=== PATIENT | female | born 1955 | race Two or more races ===

== ENCOUNTER 2020-12-16 05:29 | Inpatient (IN) | payer MEDICARE, OTHER ==
[2020-12-16] VITALS (16 sets, daily range): BP systolic 130–163; BP diastolic 64–83
[~2020-12-16] VITALS: Ht 157.5 cm; Wt 81.2 kg
[2020-12-16] MEDS ORDERED: FLUTICASONE PRO16 G1 NASAL (06:40)
[2020-12-16] MEDS ORDERED: NITRO0.4 SL (06:40)
[2020-12-16] MEDS ORDERED: BENICAR40 MG ORAL (06:40)
[2020-12-16] MEDS ORDERED: RANEXA500 MG ORAL (06:40)
[2020-12-16] MEDS ORDERED: ASPIRIN81 MG ORAL (06:40)
[2020-12-16] MEDS ORDERED: CRESTOR20 MG ORAL (06:40)
[2020-12-16] MEDS ORDERED: PANTOPRAZOLE SO40 MG ORAL (06:40)
[2020-12-16] MEDS ORDERED: DICLOFEN 3%-HYA30 GM TP (06:40)
[2020-12-16] MEDS ORDERED: METOPROLOL TART25 MG ORAL (06:40)
[2020-12-16] MEDS ORDERED: AMLODIPINE BESY10 MG ORAL (06:40)
[2020-12-16] MEDS ORDERED: IBUPROFEN600 M1 ORAL (06:40)
[2020-12-16] MEDS ORDERED: TRAMADOL HCL50 MG ORAL (06:40)
[2020-12-16] MEDS ORDERED: ceFAZolin sod 1 GM in NS 55 ML IVPB ONE (07:00)
[2020-12-16] MEDS ORDERED: Acetaminophen (Non formulary) 100 ML IV ONE (07:15)
[2020-12-16] MEDS ORDERED: oxyCODONE HCL/Acetaminophen 5/325mg ORAL PRN (07:15)
[2020-12-16] MEDS ORDERED: LR 1000ml 1,000 ML IVLG SCH (07:15)
[2020-12-16] MEDS ORDERED: fentaNYL 100 mcg/2 mL IV PRN (07:15)
[2020-12-16] MEDS ORDERED: Ketorolac 30mg Inj IV PRN ×2 (07:15)
[2020-12-16] MEDS ORDERED: Hydromorphone 0.5mg/0.5ml inj IVP PRN (07:15)
[2020-12-16] MEDS ORDERED: Atropine Sulfate 0.4mg/ml inj IVP PRN (07:15)
[2020-12-16] MEDS ORDERED: DiphenhydrAMINE 50mg/ml Inj IVP PRN (07:15)
[2020-12-16] MEDS ORDERED: Metoclopramide 10mg/2ml Inj IVP PRN (07:15)
[2020-12-16] MEDS ORDERED: LORazepam Inj 2mg/ml 1ml IV PRN (07:15)
[2020-12-16] MEDS ORDERED: Midazolam 2mg/2ml Inj IVP PRN (07:15)
[2020-12-16] MEDS ORDERED: Labetalol 5mg/ml 20ml vial IV PRN (07:15)
[2020-12-16] MEDS ORDERED: HYDROcodone/Acetamin 5/325 tab ORAL PRN (07:15)
[2020-12-16] MEDS ORDERED: Meperidine 25mg/1ml Inj (FOR RIGORS ONLY) IV PRN (07:15)
[2020-12-16] MEDS ORDERED: HYDROcodone/Acetamin 7.5/325 tab ORAL PRN (07:15)
[2020-12-16] MEDS ORDERED: Sodium Chloride 10ml vial INJ ONE (07:16)
[2020-12-16] MEDS ORDERED: Lidocaine 1% MPF 10mg/ml 5ml ONE (07:16)
--- NOTE | 2020-12-16 07:19 | Anethesia Preoperative Eval ---
Anesthesia Pre-op PMH/ROS General Date of Evaluation: Dec 16, 2020 Time of Evaluation: 07:19 Anesthesiologist: Walker ASA Score: ASA 3 Mallampati Score Class I : Soft palate, uvula, fauces, pillars visible Class II: Soft palate, uvula, fauces visible Class III: Soft palate, base of uvula visible Class IV: Only hard plate visible Mallampati Classification: Class II Surgeon: Vanita Diagnosis: Abd Pain Surgical Procedure: L Nephrectomy Anesthesia History: none Family History: no anesthesia problems Allergies: Coded Allergies: No Known Allergies (Unverified , 12/16/20) Medications: see eMAR Patient NPO?: Yes Past Medical History Cardiovascular: Reports: HTN, other - HL Gastrointestinal/Genitourinary: Reports: GERD Hematology/Immune: Reports: other - L Breast CA Other: obesity - BMI 34 PSxH Narrative: L Mastectomy Anesthesia Pre-op Phys. Exam Physician Exam Last Vital Signs Date Time Temp Pulse Resp B/P (MAP) Pulse Ox O2 Delivery O2 Flow Rate FiO2 12/16/20 06:01 Room Air 12/16/20 05:59 97.0 78 18 161/71 (101) 97 Constitutional: NAD Neurologic: CN 2-12 intact Cardiovascular: RRR Respiratory: CTA Gastrointestinal: S/NT/ND Airway Exam Mallampati Score: Class II MO: full ROM: full Teeth: missing, intact Anesthesia Pre-op A/P Risk Assessment & Plan Assessment: ASA 3 Plan: GA, SED, GlideScope Status Change Before Surgery: No Pre-Antibiotics Dru Gram Ancef IV Given Within 1 Hr of Incision: Yes Time Given: 07:56 Edis Cardoso MD Dec 16, 2020 07:19
[2020-12-16] MEDS ORDERED: Bupivacaine 0.5% Inj 30 ml vial INJ ONE (07:25)
[2020-12-16] MEDS ORDERED: Gelatin Sponge,Absorbable Syr TP ONE (07:25)
[2020-12-16] MEDS ORDERED: Thrombin 5000 units TOPIC ONE (07:26)
[2020-12-16] MEDS ORDERED: fentaNYL 100 mcg/2 mL IV ONE (07:34)
--- NOTE | 2020-12-16 07:59 | Pre-Procedure Note/Attestation ---
Pre-Procedure Note/Attestation Complete Prior to Procedure Planned Procedure: left Procedure Narrative: Laparoscopic partial nephrectomy Indications for Procedure Pre-Operative Diagnosis: left renal mass Attestation I attest that I discussed the nature of the procedure; its benefits; risks and complications; and alternatives (and the risks and benefits of such alternatives), prior to the procedure, with the patient (or the patient's legal insurance verification representative). I attest that, if there was a reasonable possibility of needing a blood transfusion, the patient (or the patient's legal insurance verification representative) was given the [facility] standardized written summary, pursuant to the Manjinder Torrey Blood Safety Act ([place] Health and Safety Code # 1645, as amended). I attest that I re-evaluated the patient just prior to the surgery and that there has been no change in the patient's H&P, except as documented below: Nam Waldron MD Dec 16, 2020 07:59
[2020-12-16] MEDS ORDERED: Ketorolac 30mg Inj ONE (08:39)
--- NOTE | 2020-12-16 08:45 | Brief Operative Note ---
Immediate Post Operative Note Operative Note Pre-op Diagnosis: left renal mass Procedure: Left laparoscopic partial nephrectomy Post-op Diagnosis: same Post-op Diagnosis: same as pre-op Surgeon: Jorge Waldron Anesthesia: general Specimen: yes Complications: none Condition: stable Fluids: 500 Estimated Blood Loss: minimal Implant(s) used?: No Nam Waldron MD Dec 16, 2020 08:45
--- NOTE | 2020-12-16 08:46 | Immediate Post-Op Evaluation ---
Immediate Post-Op Evalulation Immediate Post-Op Evalulation Procedure: L Renal Cyst Removal Date of Evaluation: Dec 16, 2020 Time of Evaluation: 09:13 IV Fluids: 500 LR Blood Products: 0 Estimated Blood Loss: 10 Urinary Output: 0 Blood Pressure Systolic: 171 Blood Pressure Diastolic: 92 Pulse Rate: 79 Respiratory Rate: 16 O2 Sat by Pulse Oximetry: 97 Temperature (Fahrenheit): 98.8 Pain Score (1-10): 2 Nausea: No Vomiting: No Complications 0 Patient Status: awake, reacts, patent, extubated, none Hydration Status: adequate Dru Gram Ancef IV Given Within 1 Hr of Incision: Yes Time Given: 07:56 Edis Cardoso MD Dec 16, 2020 08:46
[2020-12-16] MEDS ORDERED: Ketorolac 30mg Inj IM PRN (09:00)
[2020-12-16 09:34] LABS: BASOPHILS % (AUTO) 0.8 % (0.0-2.0); HEMATOCRIT 39.6 % (37.0-47.0); HEMOGLOBIN 12.9 G/DL (12.0-16.0); LYMPHOCYTES % (AUTO) 34.6 % (20.0-45.0); MEAN CORPUSCULAR VOLUME 89 FL (80-99); MONOCYTES % (AUTO) 4.2 % (1.0-10.0); NEUTROPHILS % (AUTO) 59.4 % (45.0-75.0); PLATELET COUNT 225 K/UL (150-450); RED BLOOD COUNT 4.43 M/UL (4.20-5.40); RED CELL DISTRIBUTION WIDTH 12.6 % (11.6-14.8); WHITE BLOOD COUNT 7.1 K/UL (4.8-10.8)
[2020-12-16 09:41] LABS: ANION GAP 9 mmol/L (5-15); BLOOD UREA NITROGEN 17 mg/dL (7-18); CALCIUM 8.8 MG/DL (8.5-10.1); CARBON DIOXIDE 27 MMOL/L (21-32); CHLORIDE 108 MMOL/L (98-107); CREATININE 0.9 MG/DL (0.55-1.30); POTASSIUM 3.5 MMOL/L (3.5-5.1); SODIUM 144 MMOL/L (136-145)
--- NOTE | 2020-12-16 10:00 | NUR ---
NURSE NOTES: Pt received from Yudy Barton neurosurgical nurse. pt awake and responsive. Bed low and locked, aguilar light placed within reach. no complaint of pain. initial vitals as follows: 130/68, 98.2 Oral, 94 on 2 liters NC, 18 respiration, 84 HR.
[2020-12-16] MEDS: D5 1/2NS w/KCl 20mEq 1,000 ML IV SCH ×2 (12:22→21:20)
--- NOTE | 2020-12-16 13:24 | NUR ---
NURSE NOTES: PLease note delay on med recon due to no assignment of pcp. Notified Dr. Waldron upon arrival however still no response.
--- NOTE | 2020-12-16 13:29 | Operative Note - Dictated ---
DATE OF OPERATION: 12/16/2020 PREOPERATIVE DIAGNOSIS: Left renal cyst/mass. POSTOPERATIVE DIAGNOSIS: Left renal cyst/mass. OPERATION: Laparoscopic partial nephrectomy on the left. BOAT GARNISHER: Nam Waldron MD. ANESTHESIA: General. FINDINGS: Septated mass in the left kidney. INDICATIONS FOR SURGERY: The patient had abdominal pain and underwent CT urogram that showed a large cystic lesion in the left kidney, most likely simple cyst. However, there was a septa with a questionable 2 versus 3. Treatment options were explained in great length including all potential complications to the patient. She signed a consent. DESCRIPTION OF PROCEDURE: She was brought to the operating room, placed in left lateral decubital position, prepped and draped in a standard fashion. A Veress needle was placed. Pneumoperitoneum was created to 15 mmHg. A 12 mm trocar was placed and additional 5 and 12 mm trocar was placed in the standard position. Cyst was clearly seen protruding from the mesentery of the descending colon. Using sharp blunt dissection electrocautery, colon was retracted medially exposing cystic mass of the left kidney. Using hot scissors as well as the hook, cyst was dissected free all the way to the margin of the left kidney and excised in whole entirety and sent for pathologic examination. Inside the cyst was clear fluid approximately 300 mL. There was no evidence of bleeding or . Sponge count, instrument count was correct. All the trocars were removed. Pneumoperitoneum deflated. Wounds were closed with 0 Vicryl [id number] suture and esequiel for the skin. Nam Waldron M.D. DR: YANETH JOB#: [id number] CC:
[2020-12-16] MEDS ORDERED: Flonase Nasal Inhaler 16gm NASAL SCH (15:30)
[2020-12-16] MEDS ORDERED: Ranolazine 500mg tab ORAL SCH (15:30)
[2020-12-16] MEDS ORDERED: traMADol 50mg tab ORAL PRN (15:30)
[2020-12-16] MEDS ORDERED: Nitroglycerin Subl 0.4mg tab SL PRN (15:30)
[2020-12-16] MEDS: ceFAZolin 2gm/50ml Premix 50 ML IV SCH (16:15)
--- NOTE | 2020-12-16 19:45 | NUR ---
NURSE HAND-OFF: Important Events on Shift:[no remarkabe evets] Patient Status: [full] Diet: [clear liquid] Pending Orders: [] Pending Results/Labs:[] Pending MD notification:[] Latest Vital Signs: Temperature 98.2 , Pulse 91 , B/P 143 /70 , Respiratory Rate 20 , O2 SAT 94 , Nasal Cannula, O2 Flow Rate 3 . Vital Sign Comment: [] Latest Duran Fall Score: 30 Fall Risk: Medium Risk Safety Measures: Call light , Bed Alarm , Side Rails Side Rails x1, Bed position . Fall Precautions: Report given to [Natasha MARTINEZ].
--- NOTE | 2020-12-16 19:46 | NUR ---
NURSE NOTES: Received patient in no apparent distress. A&OX4. IV site patent and intact. Surgical dressing noted on abdomen, dry and intact. Provide IS instruction, patient fully understood. Bed in lowest position. Call light within reach. Will continue to monitor.
--- NOTE | 2020-12-16 19:53 | NUR ---
NURSE NOTES: Obtained SCD for DVT prophylaxis order from Dr. Vega.
--- NOTE | 2020-12-16 20:40 | NUR ---
NURSE NOTES: Clarified with Dr. Vega regarding patient's one of home medication which is Flonase and Ranexa. Obtained continue Flonase as needed and Ranexa 500mg po BID scheduled order.
[2020-12-17] VITALS: BP 116/60
[2020-12-17] MEDS: ceFAZolin 2gm/50ml Premix 50 ML IV SCH (00:02)
[2020-12-17 04:00] VITALS: BP 135/63
[2020-12-17 05:56] LABS: BASOPHILS % (AUTO) 0.9 % (0.0-2.0); EOSINOPHILS % (AUTO) 0.1 % (0.0-3.0); HEMATOCRIT 38.3 % (37.0-47.0); HEMOGLOBIN 12.5 G/DL (12.0-16.0); MEAN CORPUSCULAR VOLUME 90 FL (80-99); MONOCYTES % (AUTO) 4.6 % (1.0-10.0); NEUTROPHILS % (AUTO) 69.5 % (45.0-75.0); PLATELET COUNT 232 K/UL (150-450); RED BLOOD COUNT 4.25 M/UL (4.20-5.40); RED CELL DISTRIBUTION WIDTH 12.5 % (11.6-14.8)
[2020-12-17 06:08] LABS: ANION GAP 13 mmol/L (5-15); BLOOD UREA NITROGEN 10 mg/dL (7-18); CALCIUM 9.1 MG/DL (8.5-10.1); CARBON DIOXIDE 23 MMOL/L (21-32); CHLORIDE 108 MMOL/L (98-107); CREATININE 0.9 MG/DL (0.55-1.30); POTASSIUM 4.4 MMOL/L (3.5-5.1); SODIUM 143 MMOL/L (136-145)
--- NOTE | 2020-12-17 07:39 | NUR ---
NURSE HAND-OFF: Important Events on Shift: Patient Status: Diet: clear liquid Pending Orders: Pending Results/Labs: Pending MD notification: Latest Vital Signs: Temperature 98.2 , Pulse 73 , B/P 135 /63 , Respiratory Rate 20 , O2 SAT 96 , Nasal Cannula, O2 Flow Rate 2.0 . Vital Sign Comment: Latest Duran Fall Score: 30 Fall Risk: Medium Risk Safety Measures: Call light Within Reach, Bed Alarm Zone 1, Side Rails Side Rails x2, Bed position Low and Locked. Fall Precautions: Patient Fall Education Report given to Yudy MARTINEZ.
--- NOTE | 2020-12-17 07:40 | NUR ---
NURSE NOTES Received patient comfortably resting on bed, asleep, but easily arousable, no sign of distress, IVF patent and infusing well, lap sites dry no active bleeding noted,on fall precaution plan of care ws discussed verbalized understanding 4 P's in progress MICHELLE SALINAS
[2020-12-17 08:00] VITALS: BP 129/69
[2020-12-17] MEDS: D5 1/2NS w/KCl 20mEq 1,000 ML IV SCH (08:10)
--- NOTE | 2020-12-17 08:50 | NUR ---
PT EVALUATION/DISCHARGE NOTE Patient seen for initial evaluation. Skilled inpatient PT intervention is not warranted as patient is at independent/supervised level with all functional mobility without an assistive device. Patient discharged from PT, safe to function with nursing supervision. No DME needs identified. Manuela RN notified of patient's status. Addendum: 12/17/20 at 1204 by ROMELIA COURTNEY PT Amended: Links added.
[2020-12-17] MEDS ORDERED: Ranolazine 500mg tab ORAL SCH (09:00)
--- NOTE | 2020-12-17 09:29 | NUR ---
nurse notes harden cath dcd as ordered seen by PT deyanira vieyra RN
[2020-12-17 11:46] VITALS: BP 127/67
--- NOTE | 2020-12-17 12:26 | 48 Hour Post Anesthesia Eval ---
Post Anesthesia Evaluation Procedure: L Renal Cyst Removal Date of Evaluation: Dec 17, 2020 Time of Evaluation: 12:25 Blood Pressure Systolic: 134 0: 72 Pulse Rate: 68 Respiratory Rate: 20 Temperature (Fahrenheit): 97.6 O2 Sat by Pulse Oximetry: 98 Airway: patent Nausea: No Vomiting: No Pain Intensity: 2 Hydration Status: adequate Cardiopulmonary Status: stable Mental Status/LOC: patient returned to baseline Follow-up Care/Observations: n/a Post-Anesthesia Complications: none Follow-up care needed: ready to discharge Arturo Ridley MD Dec 17, 2020 12:26
--- NOTE | 2020-12-17 12:42 | Consultation ---
History of Present Illness General Date patient seen: Dec 17, 2020 Present Illness HPI 65-year-old female status post Laparoscopic partial nephrectomy on the left who was admitted post op for monitoring. surgery called to evaluate and assist with care. patient seen, chart reviewed, patient examined. no n/v/f/c. states feels very well. pain controlled. diet initiated. no signs of bleeding. abd exam benign. meds reviewed, chart reviewed, patient monitored in post op period safely Allergies: Coded Allergies: No Known Allergies (Unverified , 12/16/20) COVID-19 Screening Contact w/high risk pt: No Experienced COVID-19 symptoms?: No Medication History Scheduled Amlodipine Besylate* (Amlodipine Besylate*), 10 MG ORAL DAILY, (Reported) Aspirin* (Aspirin*), 81 MG ORAL DAILY, (Reported) Diclofenac/Hyaluronate/Niacin (Diclofen 3%-Hyaluron 2%-Niac4%), 30 GM TP NEEDED, (Reported) Fluticasone Propionate* (Fluticasone Propionate*), 1 SPRAY NASAL NEEDED, ( Reported) Metoprolol Tartrate* (Metoprolol Tartrate*), 25 MG ORAL EVERY 12 HOURS, (Reported) Olmesartan Medoxomil (Benicar), 40 MG ORAL DAILY, (Reported) Pantoprazole* (Pantoprazole*), 40 MG ORAL DAILY, (Reported) Ranolazine* (Ranexa*), 500 MG ORAL BID, (Reported) Rosuvastatin Calcium* (Crestor*), 20 MG ORAL DAILY, (Reported) Scheduled PRN Ibuprofen* (Motrin*), 800 MG ORAL Q6H PRN for FOR PAIN, (Reported) Nitroglycerin 0.4MG table* (Nitroglycerin*), 0.4 MG SL .Q5MIN X 3 DOSES PRN for CHEST PAIN, (Reported) Tramadol Hcl* (Ultram*), 50 MG ORAL Q6H PRN for For Pain, (Reported) Patient History History Provided By: Patient, Medical Record, PMD Healthcare decision maker N Resuscitation status Advanced Directive on File Past Medical/Surgical History Past Medical/Surgical History: (1) Renal mass Review of Systems Review of Symptoms General ROS: no weight loss or fever Psychological ROS: no depression or mood changes, no memory loss Ophthalmic ROS: no visual changes or eye irritation ENT ROS: no nasal congestion, hearing loss, dizziness Allergy and Immunology ROS: no allergic symptoms or urticaria Hematological and Lymphatic ROS: no swollen glands, unusual bleeding or bruising Endocrine ROS: no polyuria, polydipsia, weight changes, temperature intolerance Respiratory ROS: no cough, shortness of breath, or wheezing Cardiovascular ROS: no chest pain or dyspnea on exertion Gastrointestinal ROS: denies abdominal pain, bright red blood in stool. Musculoskeletal ROS: no myalgias or arthralgias Neurological ROS: no TIA or stroke symptoms Dermatological ROS: no new or changing skin lesions, rashes or pruritis Physical Exam Physical Exam General appearance: alert, cooperative, no distress, appears stated age Head: Normocephalic, without obvious abnormality, atraumatic Eyes: conjunctivae/corneas clear. PERRL, EOM's intact. Fundi benign Throat: Lips, mucosa, and tongue normal. Teeth and gums normal Neck: supple, symmetrical, trachea midline, no adenopathy, thyroid: not enlarged, symmetric, no tenderness/mass/nodules, no carotid bruit and no JVD Lungs: clear to auscultation bilaterally Heart: regular rate and rhythm, S1, S2 normal, no murmur, click, rub or gallop Abdomen: soft, non-tender. Bowel sounds normal. No masses, no organomegaly Extremities: extremities normal, atraumatic, no cyanosis or edema Pulses: 2+ and symmetric Skin: Skin color, texture, turgor normal. No rashes or lesions Neurologic: Grossly normal Last 24 Hour Vital Signs Date Time Temp Pulse Resp B/P (MAP) Pulse Ox O2 Delivery O2 Flow Rate FiO2 12/17/20 12:26 68 20 98 12/17/20 11:46 97.9 76 18 127/67 (87) 96 12/17/20 08:09 73 135/63 12/17/20 08:09 73 135/63 12/17/20 08:00 Room Air 2.0 12/17/20 08:00 98.6 77 18 129/69 (89) 96 12/17/20 04:00 98.2 73 20 135/63 (87) 96 12/17/20 00:00 97.9 68 20 116/60 (78) 94 12/16/20 21:20 88 135/67 12/16/20 21:00 Nasal Cannula 2.0 12/16/20 20:00 98.2 88 20 135/67 (89) 94 12/16/20 16:00 98.2 91 20 143/70 (94) 94 12/16/20 13:15 98.1 86 18 131/70 (90) 94 Intake and Output 12/16/20 12/17/20 19:00 07:00 Intake Total 2000 ml 1530 ml Output Total 150 ml 2200 ml Balance 1850 ml -670 ml Intake Oral 1200 ml 480 ml IV Total 800 ml 1050 ml Output Urine Total 100 ml 2200 ml Estimated Blood Loss 50 ml Laboratory Tests Test 12/17/20 05:20 White Blood Count 10.0 K/UL (4.8-10.8) Red Blood Count 4.25 M/UL (4.20-5.40) Hemoglobin 12.5 G/DL (12.0-16.0) Hematocrit 38.3 % (37.0-47.0) Mean Corpuscular Volume 90 FL (80-99) Mean Corpuscular Hemoglobin 29.4 PG (27.0-31.0) Mean Corpuscular Hemoglobin Concent 32.6 G/DL (32.0-36.0) Red Cell Distribution Width 12.5 % (11.6-14.8) Platelet Count 232 K/UL (150-450) Mean Platelet Volume 6.6 FL (6.5-10.1) Neutrophils (%) (Auto) 69.5 % (45.0-75.0) Lymphocytes (%) (Auto) 25.0 % (20.0-45.0) Monocytes (%) (Auto) 4.6 % (1.0-10.0) Eosinophils (%) (Auto) 0.1 % (0.0-3.0) Basophils (%) (Auto) 0.9 % (0.0-2.0) Sodium Level 143 MMOL/L (136-145) Potassium Level 4.4 MMOL/L (3.5-5.1) Chloride Level 108 MMOL/L (98-107) H Carbon Dioxide Level 23 MMOL/L (21-32) Anion Gap 13 mmol/L (5-15) Blood Urea Nitrogen 10 mg/dL (7-18) Creatinine 0.9 MG/DL (0.55-1.30) Estimat Glomerular Filtration Rate > 60 mL/min (>60) Glucose Level 141 MG/DL (74-106) H Calcium Level 9.1 MG/DL (8.5-10.1) Height (Feet): 5 Height (Inches): 2.00 Weight (Pounds): 179 Medications Current Medications Medications (Trade) Dose Ordered Sig/Elza Route PRN Reason Start Time Stop Time Status Last Admin Dose Admin Acetaminophen (Tylenol) 650 mg Q6H PRN ORAL Mild Pain (Pain Scale 1-3) 12/16/20 09:00 01/15/21 08:59 Amlodipine Besylate (Norvasc) 10 mg DAILY ORAL 12/17/20 09:00 01/16/21 08:59 12/17/20 08:09 Fluticasone Propionate (Flonase) 1 spray NEEDED NASAL 12/16/20 15:30 01/15/21 15:29 UNV Hydromorphone HCl (Dilaudid) 2 mg Q3H PRN IVP pain score 7-10 12/16/20 09:00 12/23/20 08:59 Ketorolac Tromethamine (Toradol 30mg) 30 mg Q6H PRN IM breakthrough pain 12/16/20 09:00 12/21/20 08:59 Metoprolol Tartrate (Lopressor) 25 mg EVERY 12 HOURS ORAL 12/16/20 21:00 03/16/21 20:59 12/17/20 08:09 Nitroglycerin (Ntg) 0.4 mg Q5MIN X 3 DOSES PRN SL CHEST PAIN 12/16/20 15:30 01/15/21 15:29 Ondansetron HCl (Zofran) 4 mg Q6H PRN IVP Nausea & Vomiting 12/16/20 09:00 01/15/21 08:59 Pantoprazole (Protonix) 40 mg DAILY ORAL 12/17/20 09:00 01/16/21 08:59 12/17/20 08:09 Ranolazine (Ranexa ER 500mg) 500 mg BID ORAL 12/17/20 09:00 03/16/21 15:29 12/17/20 09:32 Temazepam (RestoriL) 7.5 mg DAILYPRN PRN ORAL Insomnia 12/16/20 09:00 12/23/20 08:59 Tramadol HCl (Ultram) 50 mg Q6H PRN ORAL For Pain 12/16/20 15:30 12/23/20 15:29 Assessment/Plan Problem List: (1) Renal mass Assessment & Plan: s/p Laparoscopic partial nephrectomy on the left mass out pending path doing well post op all care plan and orders were taken care of and patient safe post op pain controlled exam stable no bleeding rx written instructions given plan d/c thank you ICD Codes: N28.89 - Other specified disorders of kidney and ureter SNOMED: [id number] Brigido Vega Dec 17, 2020 12:42
[2020-12-17 16:00] VITALS: BP 122/61
--- NOTE | 2020-12-17 16:14 | NUR ---
nurse notes Discharge to home obtained, patient agreed with the [plan of care,discharge intruction packet handed to patient , discharge teaching done all questions answered verbalized understanding davy vieyra
--- NOTE | 2020-12-17 16:17 | NUR ---
Nurse notes discharged in stable condition with all belongings taken wheeled to the parking area, discharged via private car,accompanied by davy vieyra
--- NOTE | 2020-12-18 11:32 | Discharge Summary ---
Discharge Summary Discharge Summary _ Date of admission: 12/16/2020 Date of discharge: 12/17/[address] Waldron History of Present Illness and Brief Hospital Course Ms. Turcios is a 65-year-old female who presented to [facility] for a scheduled surgery. Patient had abdominal pain and underwent CT urogram that showed a large cystic lesion in the left kidney, most likely simple cyst. However, there was a septa. Treatment options were explained in great length including all potential complications to the patient. Patient agreed to undergo a laparoscopic partial nephrectomy on the left. Patient tolerated the procedure well. According to the pathology report, there was no evidence of malignancy. Findings were consistent with benign simple cysts. Patient was evaluated by a physical therapist. Patient was independent and was found to be ambulating without an assistive device. Patient was medically stable for discharge and was discharged home on 12/17/2020. Consultants: Surgery Dr. Vega Discharge Condition Stable Discharge Activity As tolerated Discharge Diet Regular Final diagnoses Renal mass Status post laparoscopic partial nephrectomy on the left I have been assigned to dictate discharge summary for this account. I was not involved in the patient's management Steffen Woodward Dec 18, 2020 11:32
== END 2020-12-17 16:30 | disposition home or self-care (01) | DRG 661 ==
LOC: SDSOVERFLO 05:29 → 4E 10:10
PROC: 0TB14ZZ Excision of Left Kidney, Percutaneous Endoscopic Approach (ICD-10-PCS; principal; 2020-12-16 07:30)
DX: N28.1 Cyst of kidney, acquired (principal); I11.9 Hypertensive heart disease without heart failure; E78.5 Hyperlipidemia, unspecified; J45.909 Unspecified asthma, uncomplicated; K21.9 Gastro-esophageal reflux disease without esophagitis; E66.01 Morbid (severe) obesity due to excess calories; F32.9 Major depressive disorder, single episode, unspecified
CPT/HCPCS: 36415; 80048; 85025; 86850; 86900; 86901; 87081; 94003; 94150; J2405